=== PATIENT | female | born 1995 | race Two or more races ===

== ENCOUNTER 2022-02-22 20:21 | Observation (INO) | payer MEDICAID ==
[~2022-02-22] VITALS: Ht 149.9 cm; Wt 53.1 kg
[2022-02-22] MEDS ORDERED: AZIT1POW12 PO (23:18)
== END 2022-02-22 23:35 | disposition home or self-care (01) ==
LOC: LDRP 20:21
PROVIDERS: ADMIT Obstetrics & Gynecology; ATTEND Obstetrics & Gynecology
DX: O98.512 Other viral diseases complicating pregnancy, second trimester (principal); U07.1 COVID-19; O36.8120 Decreased fetal movements, second trimester, not applicable or unspecified; Z3A.26 26 weeks gestation of pregnancy
CPT/HCPCS: 59025; 76815; 81002; G0378

== ENCOUNTER 2022-03-07 08:13 | Observation (INO) | payer MEDICAID ==
[~2022-03-07 08:13] MED LIST changes: -PREN-96 PO
[2022-03-07] MEDS ORDERED: PREN-96 PO (15:35)
== END 2022-03-07 15:47 | disposition home or self-care (01) ==
LOC: LDRP 13:13 → UNDOADMOB 13:18 → LDRP 13:18
PROVIDERS: ADMIT Obstetrics & Gynecology; ATTEND Obstetrics & Gynecology
DX: O40.3XX0 Polyhydramnios, third trimester, not applicable or unspecified (principal); Z3A.28 28 weeks gestation of pregnancy
CPT/HCPCS: 59025; 76818; 81002; 94760; G0378

== ENCOUNTER → 2022-03-07 | Outpatient (CLI) | payer MEDICAID ==
[~2022-03-07] MED LIST: AZIT1POW12 PO; PREN-96 PO
[2022-03-07 08:01] LABS: Eosinophils # (auto) 0.1 10 ^3/uL (0-0.8); Eosinophils % (auto) 0.8 % (0.0-7.0); Lymphocytes # (auto) 2.8 10 ^3/uL (0.4-5.4); Monocytes # (auto) 0.6 10 ^3/uL (0-1.3); Neutrophils % (auto) 63.1 % (37.0-80.0); Nucleated Red Blood Cells % 0.1 %
[2022-03-07 08:03] LABS: Basophils # (auto) 0 10 ^3/uL (0-0.2); Basophils % (auto) 0.3 % (0.0-2.0); Hematocrit 32.2 % (36.0-46.0); Hemoglobin 9.9 g/dL (12.2-16.2); Lymphocytes % (auto) 29.9 % (10.0-50.0); Mean Corpuscular Hemoglobin 21.5 pg (28.0-32.0); Mean Corpuscular Hgb Conc. 30.8 g/dL (32.0-36.0); Mean Corpuscular Volume 69.8 fL (80.0-100.0); Monocytes % (auto) 5.9 % (0.0-12.0); Red Cell Distribution Width 17.9 % (11.8-14.3); White Blood Cell 9.5 10^3/uL (4.4-10.8)
== END | disposition home or self-care (01) ==
LOC: LAB 07:36
PROVIDERS: ATTEND Obstetrics & Gynecology
DX: O99.810 Abnormal glucose complicating pregnancy (principal); Z3A.00 Weeks of gestation of pregnancy not specified
CPT/HCPCS: 36415; 82951; 83036; 85025

== ENCOUNTER 2022-03-14 10:07 | Observation (INO) | payer MEDICAID ==
[~2022-03-14] VITALS: Ht 144.8 cm; Wt 56.2 kg
[~2022-03-14 10:07] MED LIST changes: -AZIT1POW12 PO; +PREN-96 PO
== END 2022-03-14 12:11 | disposition home or self-care (01) ==
LOC: LDRP 10:07 → UNDOADMOB 10:07 → LDRP 10:55
PROVIDERS: ADMIT Obstetrics & Gynecology; ATTEND Obstetrics & Gynecology
DX: O60.03 Preterm labor without delivery, third trimester (principal); Z3A.29 29 weeks gestation of pregnancy
CPT/HCPCS: 59025; 76818; G0378

== ENCOUNTER 2022-03-20 09:01 | Observation (INO) | payer MEDICAID ==
[~2022-03-20] VITALS: Ht 144.8 cm; Wt 56.2 kg
== END 2022-03-20 13:20 | disposition home or self-care (01) ==
LOC: LDRP 12:06 → UNDOADMOB 12:06 → LDRP 12:10 → UNDODISOB 13:20
PROVIDERS: ADMIT Obstetrics & Gynecology; ATTEND Obstetrics & Gynecology
DX: O40.3XX0 Polyhydramnios, third trimester, not applicable or unspecified (principal); Z3A.30 30 weeks gestation of pregnancy
CPT/HCPCS: 59025; 76818; 81002; 94760; G0378

== ENCOUNTER 2022-03-23 17:55 | Observation (INO) | payer MEDICAID | END 2022-03-23 19:20 | disposition home or self-care (01) | LOC: LDRP 17:55 | PROVIDERS: ADMIT Obstetrics & Gynecology Obstetrics; ATTEND Obstetrics & Gynecology Obstetrics | DX: O40.3XX0 Polyhydramnios, third trimester, not applicable or unspecified (principal); O26.893 Other specified pregnancy related conditions, third trimester; H53.8 Other visual disturbances; Z3A.30 30 weeks gestation of pregnancy | CPT/HCPCS: 59025; 81002; 94760; G0378 ==

== ENCOUNTER 2022-03-27 14:08 | Observation (INO) | payer MEDICAID ==
[~2022-03-27] VITALS: Ht 144.8 cm; Wt 56.2 kg
[2022-03-28] MEDS ORDERED: PREN1CHW PO (16:17)
== END 2022-03-28 16:48 | disposition home or self-care (01) ==
LOC: LDRP 03-28 15:13 → UNDOADMOB 03-28 15:21 → LDRP 03-28 15:21
PROVIDERS: ADMIT Obstetrics & Gynecology; ATTEND Obstetrics & Gynecology
DX: O40.3XX0 Polyhydramnios, third trimester, not applicable or unspecified (principal); Z3A.31 31 weeks gestation of pregnancy
CPT/HCPCS: 59025; 76818; 81002; 94760; G0378

== ENCOUNTER → 2022-04-17 | Outpatient (CLI) | payer MEDICAID ==
[~2022-04-17] MED LIST changes: +PREN1CHW PO
[2022-04-17 10:57] LABS: Red Cell Distribution Width 19.2 % (11.8-14.3); White Blood Cell 9.4 10^3/uL (4.4-10.8)
[2022-04-17 10:59] LABS: Hematocrit 29.7 % (36.0-46.0); Mean Corpuscular Hemoglobin 20.3 pg (28.0-32.0); Mean Corpuscular Hgb Conc. 30.2 g/dL (32.0-36.0); Red Blood Cells 4.43 10^6/uL (4.0-5.20)
[2022-04-18 08:06] LABS: RPR Non Reactive (Non Reactive)
== END | disposition home or self-care (01) ==
LOC: LAB 10:23
PROVIDERS: ATTEND Obstetrics & Gynecology
DX: Z34.80 Encounter for supervision of other normal pregnancy, unspecified trimester (principal); Z3A.00 Weeks of gestation of pregnancy not specified
CPT/HCPCS: 36415; 84112; 85025; 86592

== ENCOUNTER 2022-05-26 02:49 | Inpatient (IN) | payer MEDICAID ==
[2022-05-26] VITALS (7 sets, daily range): BP systolic 96–119; BP diastolic 58–77
[~2022-05-26] VITALS: Ht 144.8 cm; Wt 60.8 kg
[2022-05-26] MEDS ORDERED: WITCH HAZEL-GLYCERIN PAD TOP PRN (03:45)
[2022-05-26] MEDS ORDERED: DERMOPLAST 60ML BOTTLE TOP PRN (03:45)
[2022-05-26] MEDS ORDERED: BUTORPHANOL TARTRATE 2 MG/1 ML VIAL IV PRN ×2 (03:45)
[2022-05-26] MEDS ORDERED: PROMETHAZINE HCL 25 MG/ML 1ML IV PRN (03:45)
[2022-05-26] MEDS ORDERED: LIDOCAINE 2%HCL (LOCAL ANESTH.) INJ 20ML MDV IJ PRN (03:45)
[2022-05-26] MEDS ORDERED: PHISODERM TOP SOLN 240ML BTL TOP PRN (03:45)
[2022-05-26] MEDS ORDERED: LACT. RINGERS/OXYTOCIN 20UNITS 500 ML IV ONE ×2 (03:45→04:15)
[2022-05-26 04:25] LABS: Basophils # (auto) 0 10 ^3/uL (0-0.2); Eosinophils # (auto) 0.1 10 ^3/uL (0-0.8); Eosinophils % (auto) 0.5 % (0.0-7.0); Lymphocytes # (auto) 2.5 10 ^3/uL (0.4-5.4); Lymphocytes % (auto) 20.2 % (10.0-50.0); Monocytes # (auto) 0.7 10 ^3/uL (0-1.3); Monocytes % (auto) 5.3 % (0.0-12.0)
[2022-05-26 04:27] LABS: Basophils % (auto) 0.2 % (0.0-2.0); Hematocrit 30.9 % (36.0-46.0); Hemoglobin 8.9 g/dL (12.2-16.2); Mean Corpuscular Hemoglobin 18.9 pg (28.0-32.0); Mean Corpuscular Hgb Conc. 28.9 g/dL (32.0-36.0); Mean Corpuscular Volume 65.3 fL (80.0-100.0); Neutrophils # (auto) 9.2 10 ^3/uL (1.6-8.6); Neutrophils % (auto) 73.8 % (37.0-80.0); Nucleated Red Blood Cells % 0.4 %; Red Blood Cells 4.73 10^6/uL (4.0-5.20); White Blood Cell 12.5 10^3/uL (4.4-10.8)
[2022-05-26 04:28] LABS: Albumin 2.7 g/dL (3.4-5.0); BUN/Creatinine Ratio 12.5; Calcium 8.7 mg/dL (8.5-10.1); Potassium 3.6 mmol/L (3.5-5.1)
[2022-05-26 04:40] LABS: Bilirubin, Total 0.4 mg/dL (0.2-1.0); Total Protein 7.4 g/dL (6.4-8.2)
[2022-05-26 04:47] LABS: Urine Bacteria NONE SEEN /hpf (None Seen); Urine Blood Negative /uL (Negative); Urine Mucus FEW (None Seen); Urine WBC 1 /hpf (0 - 5)
[2022-05-26 04:57] LABS: Alcohol, Urine < 3.0 mg/dL (0-10); Amphetamine Screen, Urine NEGATIVE (NEGATIVE); Barbiturate Scree,Urine NEGATIVE (NEGATIVE); Benzodiazephine Screen, Urine NEGATIVE (NEGATIVE); Cannabinoid Screen, Urine NEGATIVE (NEGATIVE); Cocaine Screen, Urine NEGATIVE (NEGATIVE); Opiate Scree,Urine POSITIVE (NEGATIVE); Phencyclidine Screen, Urine NEGATIVE (NEGATIVE)
[2022-05-26 04:59] LABS: INR 0.89 (0.9-1.15); Partial Thromboplastin Time 25.9 sec (24.6-33.4)
[2022-05-26] MEDS: LACTATED RINGER'S 1,000 ML IV SCH ×3 (05:13→18:26)
[2022-05-26] MEDS ORDERED: miSOPROStol 50 MCG per PRE-CUT 1/2 TAB PO PRN (07:00)
[2022-05-26] MEDS ORDERED: ePHEDrine SULFATE 50 MG/ML AMP IV ONE (10:45)
[2022-05-26] MEDS ORDERED: fentaNYL CITRATE 100 MCG/2 ML VL IV ONE (10:45)
[2022-05-26] MEDS ORDERED: ROPIVACAINE HCL 200 ML EPI SCH (10:45)
[2022-05-26] MEDS ORDERED: LACTATED RINGER'S 500 ML IV ONE (10:45)
[2022-05-26] MEDS ORDERED: NALOXONE HCL 0.4 MG/ML VIAL IV ONE (10:45)
[2022-05-26] MEDS ORDERED: ceFAZolin 1GM/50ML 50 ML IV ONE (14:15)
[2022-05-26 14:22] LABS: Alcohol, Urine < 3.0 mg/dL (0-10); Amphetamine Screen, Urine NEGATIVE (NEGATIVE); Barbiturate Scree,Urine NEGATIVE (NEGATIVE); Benzodiazephine Screen, Urine NEGATIVE (NEGATIVE); Cannabinoid Screen, Urine NEGATIVE (NEGATIVE); Cocaine Screen, Urine NEGATIVE (NEGATIVE); Opiate Scree,Urine POSITIVE (NEGATIVE); Phencyclidine Screen, Urine NEGATIVE (NEGATIVE)
[2022-05-26] MEDS ORDERED: ONDANSETRON HCL 4 MG/2 ML VIAL IV PRN ×3 (16:00→18:00)
[2022-05-26] MEDS ORDERED: ceFAZolin 1GM/50ML 50 ML IV SCH (16:00)
[2022-05-26] MEDS ORDERED: HYDROcodone-ACET 5/325MG TAB PO PRN (16:00)
[2022-05-26] MEDS ORDERED: MORPHINE SULFATE 4 MG/ML SYR/VIAL IV PRN (16:00)
[2022-05-26] MEDS ORDERED: fentaNYL CITRATE 100 MCG/2 ML VL ONE (16:04)
[2022-05-26] MEDS ORDERED: MORPHINE SULF PF 5 MG/10 ML VIAL ONE (16:04)
[2022-05-26] MEDS ORDERED: PROPOFOL 10 MG/ML 20 ML IV ONE (16:05)
[2022-05-26] MEDS ORDERED: oxyTOCIN 10 UNIT/ML 10ML VIAL ONE (16:05)
[2022-05-26] MEDS ORDERED: ONDANSETRON HCL 4 MG/2 ML VIAL ONE (16:05)
[2022-05-26] MEDS ORDERED: GLYCOPYRROLATE 0.2 MG/ML 1ML VIAL ONE (16:05)
[2022-05-26] MEDS ORDERED: KETOROLAC TROMETH 30 MG/ML 1ML VIAL ONE (16:05)
[2022-05-26] MEDS ORDERED: BUPIVACAINE/DEXTROSE MPF 0.75% 2 ML AMP IT ONE (16:05)
[2022-05-26] MEDS ORDERED: FAMOTIDINE (10MG/ML) 2ML VL IV ONE (16:14)
[2022-05-26] MEDS ORDERED: KETOROLAC TROMETH 30 MG/ML 1ML VIAL IV PRN (18:00)
[2022-05-26] MEDS ORDERED: NALOXONE HCL 0.4 MG/ML VIAL IV PRN (18:00)
[2022-05-26] MEDS ORDERED: HYDROmorphone HCL 2 MG/ML VL/or syr IV PRN (18:00)
[2022-05-26] MEDS ORDERED: diphenhdrAMINE HCL 50 MG/1 ML VL IV PRN (18:00)
[2022-05-26] MEDS ORDERED: DexAMETHasone SOD PHOS 10MG/1ML VIAL INJ IV PRN (18:00)
[2022-05-26] MEDS: ceFAZolin 1GM/50ML 50 ML IV SCH (22:54)
[2022-05-27] VITALS (20 sets, daily range): BP systolic 93–111; BP diastolic 50–71
[2022-05-27] MEDS: LACTATED RINGER'S 1,000 ML IV SCH (04:45)
[2022-05-27 07:19] LABS: Eosinophils % (auto) 0.3 % (0.0-7.0); Red Blood Cells 4.02 10^6/uL (4.0-5.20)
[2022-05-27 07:23] LABS: Basophils # (auto) 0 10 ^3/uL (0-0.2); Basophils % (auto) 0.3 % (0.0-2.0); Eosinophils # (auto) 0 10 ^3/uL (0-0.8); Hematocrit 26.3 % (36.0-46.0); Hemoglobin 7.7 g/dL (12.2-16.2); Lymphocytes # (auto) 1.7 10 ^3/uL (0.4-5.4); Lymphocytes % (auto) 10.5 % (10.0-50.0); Mean Corpuscular Hemoglobin 19.2 pg (28.0-32.0); Mean Corpuscular Hgb Conc. 29.3 g/dL (32.0-36.0); Mean Corpuscular Volume 65.6 fL (80.0-100.0); Monocytes # (auto) 0.9 10 ^3/uL (0-1.3); Monocytes % (auto) 5.4 % (0.0-12.0); Neutrophils # (auto) 13.2 10 ^3/uL (1.6-8.6); Neutrophils % (auto) 83.5 % (37.0-80.0); White Blood Cell 15.8 10^3/uL (4.4-10.8)
[2022-05-27] MEDS: ceFAZolin 1GM/50ML 50 ML IV SCH ×2 (07:23→15:21)
[2022-05-27] MEDS ORDERED: BISACODYL 10 MG RECT SUPP PR PRN (07:30)
[2022-05-27] MEDS ORDERED: HYDROcodone-ACET 5/325MG TAB PO PRN (07:30)
[2022-05-27 07:34] LABS: Red Cell Distribution Width 20.5 % (11.8-14.3)
[2022-05-27] MEDS: DOCUSATE SOD 100 MG CAP PO SCH ×2 (10:20→22:07)
[2022-05-27] MEDS: DOCUSATE CALCIUM 240 MG CAP PO SCH (10:20)
[2022-05-27] MEDS: FERROUS SULFATE 325mg EC TAB PO SCH ×2 (10:23→22:07)
[2022-05-27] MEDS: SIMETHICONE 80 MG CHEWABLE TABLET PO SCH ×3 (11:44→22:07)
[2022-05-27] MEDS: IBUPROFEN 800 MG TAB PO PRN ×2 (11:45→22:07)
[2022-05-27] MEDS ORDERED: IBUP800T27 PO (12:15)
[2022-05-27] MEDS ORDERED: DOCU-94 PO (12:15)
[2022-05-27] MEDS ORDERED: HYDR-4902 PO (12:15)
[2022-05-27] MEDS: HYDROcodone-ACET 5/325MG TAB PO PRN (15:45)
[2022-05-28] MEDS: HYDROcodone-ACET 5/325MG TAB PO PRN ×3 (00:01→23:13)
[2022-05-28 03:30] VITALS: BP 102/61
[2022-05-28 06:14] VITALS: BP 96/59
[2022-05-28] MEDS: SIMETHICONE 80 MG CHEWABLE TABLET PO SCH ×4 (06:49→22:05)
[2022-05-28] MEDS: IBUPROFEN 800 MG TAB PO PRN ×2 (06:50→16:45)
[2022-05-28 08:06] LABS: RPR Non Reactive (Non Reactive)
[2022-05-28 09:00] VITALS: BP 103/54
[2022-05-28] MEDS: DOCUSATE SOD 100 MG CAP PO SCH ×2 (09:35→22:05)
[2022-05-28] MEDS: FERROUS SULFATE 325mg EC TAB PO SCH ×2 (09:35→22:05)
[2022-05-28] MEDS: DOCUSATE CALCIUM 240 MG CAP PO SCH (09:35)
[2022-05-28 14:58] VITALS: BP 108/48
[2022-05-28 18:54] VITALS: BP 104/60
[2022-05-28 23:02] VITALS: BP 112/73
[2022-05-29 03:14] VITALS: BP 89/50
[2022-05-29 06:30] VITALS: BP 122/72
[2022-05-29] MEDS: IBUPROFEN 800 MG TAB PO PRN (06:56)
[2022-05-29] MEDS: SIMETHICONE 80 MG CHEWABLE TABLET PO SCH (06:56)
== END 2022-05-29 09:02 | disposition home or self-care (01) | DRG 540 ==
LOC: LDRP 02:49 → OBSVTOIN 03:53 → LDRP 16:54
PROVIDERS: ADMIT Obstetrics & Gynecology; ATTEND Obstetrics & Gynecology
PROC: 10D00Z1 Extraction of Products of Conception, Low, Open Approach (ICD-10-PCS; principal; 2022-05-26 16:22)
DX: O69.0XX0 Labor and delivery complicated by prolapse of cord, not applicable or unspecified (principal); O24.92 Unspecified diabetes mellitus in childbirth; Z37.0 Single live birth; Z20.822 Contact with and (suspected) exposure to COVID-19; O77.0 Labor and delivery complicated by meconium in amniotic fluid; O76 Abnormality in fetal heart rate and rhythm complicating labor and delivery; Z3A.39 39 weeks gestation of pregnancy; O90.81 Anemia of the puerperium; D62 Acute posthemorrhagic anemia
CPT/HCPCS: 36415; 59025; 76805; 80053; 80307; 81001; 81002; 82962; 85025; 85610; 85730; 86592; 86850; 86900; 86901; 87426; 94760; 94762; 96360; 96361; 96365; 96366; G0378; J0690; J1885; J2405; J2590; J2704; J3490